=== PATIENT | male | born 1955 | race Caucasian/White ===

== ENCOUNTER → 2016-05-18 | Outpatient (CLI) | payer BC ==
[~2016-05-18] MED LIST: BISO1TAB38 PO; PRAV40TA44 PO; [UNRECOGNIZED DRUG - CODE] PO; [UNRECOGNIZED DRUG - CODE] PO
--- NOTE | 2016-05-18 15:15 | DI ---
Indication: ITS.REASON: M54.12 CERVICAL RADICULOPATHY; M48.02 CERVICAL SPINAL STENOSIS PROCEDURE: CERVICAL SPINE 3 VIEWS OR LESS: Encounter: Initial Comparison: March 23, 2016 Findings: Anterior C5-C6 spinal fusion with interbody bone graft appears stable in alignment. No acute fracture identified. Alignment of the cervical spine is unchanged. Cervicothoracic junction appears intact. Mild uncovertebral and degenerative facet changes. Impression: Unchanged appearance of the C5-C6 cervical spine fusion. .
== END ==
LOC: IMA 14:28
PROVIDERS: ATTEND Neurological Surgery
DX: M54.12 Radiculopathy, cervical region (principal); M48.02 Spinal stenosis, cervical region; Z98.1 Arthrodesis status